=== PATIENT | female | born 1990 | race Caucasian/White ===

== ENCOUNTER 2020-02-09 16:17 | Emergency (ER) | payer BC ==
--- OUTSIDE RECORDS SUMMARY | 2020-02-09 16:39 | XMS REPORT | Continuity of Care Document ---
:1990 Author Organization [facility] t Address [address] [place] [address] Care Team Providers Name Role Phone Umang GARNETT Primary Care Physician Problems Condition Condition Condition Status Onset Resolution Last Treating Co mments Source Name Details Category Date Date Treatment Clinician Date Breast Breast Disease Active [place] mass mass 03-08 [facility] 00:00: st 00 Breast Breast Disease Active [place] density density 03-08 [facility] 00:00: st 00 Breast Breast Disease Active [place] pain pain 03-08 [facility] 00:00: st 00 Endometrio Endometrio Problem Active [facility] sis sis da (clinical) (Clinical) Me dical Group Elevated Elevated Problem Active [place] blood Blood da pressure Pressure Medica l Group Mood Mood Problem Active [place] [facility] Allergies, Adverse Reactions, Alerts Allergy Allergy Status Severity Reaction(s) Onset Inactive Treating Comm ents Source Name Type Date Date Clinician Codeine Propensi Active vomiting [place] to 09-28 [facility] adverse 00:00: st reaction 00 s to drug Codeine Allergy Active Nausea [place] to da substanc [facility] e Group Family History Family Member Diagnosis Comments Start Date Stop Date Source Paternal grandfather Colon cancer Bernard [facility]dock [facility] Natural son Cervical cancer Richard [facility] Natural son Ovarian cancer [facility] ethodi Social History Social Habit Start Date Stop Date Quantity Comments Source Sex Assigned At [facility] ethodist Tobacco use and 2017-03-08 2017-03-08 Never used [facility] ethodist exposure 00:00:00 00:00:00 Alcohol intake 2017-03-08 2017-03-08 Current drinker [place] [facility] 00:00:00 00:00:00 of alcohol (finding) Smoking Status Start Date Stop Date Source Never smoker Richard Ghosh t Medications Ordered Filled Start Stop Current Ordering Indication Dosage Frequency Signature Comments Components Source Medication Medication Date Date Medication? Clinician (SIG) Name Name amphetamine Yes TK ONE C Bernard murdock -dextroamph 09-22 PO QAM Method i etamine XR 00:00: st (ADDERALL 00 XR) 15 MG 24 hr capsule Lyrica 50 Lyrica 50 No 1capsul BID Lyrica 50 [place] mg capsule mg capsule e(s) mg capsule da Take 1 Take 1 Take 1 Medical capsule capsule capsule Group twice a day twice a day twice a by oral by oral day by route. route. oral route. Medrol Medrol No 1dose Medrol [place] (Howard) 4 mg (Howard) 4 mg pk(s) (Howard) 4 mg da tablets in tablets in tablets in Medical a dose pack a dose pack a dose Group Take 1 dose Take 1 dose pack Take pk by oral pk by oral 1 dose pk route as route as by oral directed. directed. route as directed. Immunizations Ordered Immunization Filled Immunization Date Status Commen ts Source Name Name influenza, influenza, 2019-12-03 Completed [place] injectable, injectable, 12:34:21 [facility] Gr[facility] p quadrivalent, quadrivalent, preservative free preservative free Vital Signs Vital Name Observation Time Observation Value Comments Source BP Diastolic 2019-12-29 00:00:00 95 mm[Hg] [facility] Height 2019-12-29 00:00:00 64 [in_i] [facility] BMI (Body Mass 2019-12-29 00:00:00 24.7 kg/m2 [facility] Index) Group BP Systolic 2019-12-29 00:00:00 140 mm[Hg] [facility] Body Weight 2019-12-29 00:00:00 2304 [oz_av] [facility] BP Diastolic 2019-08-27 00:00:00 92 mm[Hg] [facility] Height 2019-08-27 00:00:00 64 [in_i] [facility] BMI (Body Mass 2019-08-27 00:00:00 24.6 kg/m2 [facility]) Group BP Systolic 2019-08-27 00:00:00 140 mm[Hg] [facility] Body Weight 2019-08-27 00:00:00 2297 [oz_av] [facility] BP Diastolic 2018-04-24 00:00:00 88 mm[Hg] [facility] Height 2018-04-24 00:00:00 64 [in_i] [facility] BMI (Body Mass 2018-04-24 00:00:00 24.6 kg/m2 [facility]) Group BP Systolic 2018-04-24 00:00:00 131 mm[Hg] [facility] Body Weight 2018-04-24 00:00:00 143.6 [lb_av] [facility] Procedures Procedure Date / Time Performed Performing Clinician Basil Underwood Cholecystectomy 2010-02-26 00:00:00 [facility] Laparotomy 2009-02-26 00:00:00 Pam Parr [facility] Plan of Care Planned Activity Planned Date Details Comments Source Future Scheduled Test 2019-09-27 INFLUENZA VACCINE [place] [facility] 00:00:00 [code = INFLUENZA VACCINE] Future Scheduled Test 2009 Screening for [place] [facility] 00:00:00 malignant neoplasm of cervix (procedure) [code = 816092570] Instructions [place] [facility] Encounters Start End Encounter Admission Attending Care Care Encounter Source Date/Time Date/Time Type Type Clinicians Facility Department ID 2019-12-29 2019-12-29 Amisha [place] - [id number] [facility] 00:00:00 00:00:00 Discovery ruby Modi 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 2019-08-27 2019-08-27 T[place] [facility] [place] - [id number] [facility] 00:00:00 00:00:00 Denton Paulson, Medical Medical MD: [address] [facility] [address], [place] [address] , Ph. 2018-04-24 2018-04-24 Leyla [facility] [place] - [id number] Dorothy marrufogojuhi 00:00:00 00:00:00 Kamar Matos, Medical Medica l MD: [address] [facility], OBGYN [address], [place] [address] , Ph. [phone] Results This patient has no known results.
--- OUTSIDE RECORDS SUMMARY | 2020-02-09 16:39 | XMS REPORT | Clinical Summary ---
:1990 Author Organization [facility] Address [address] [place] [address] Care Team Providers Name Role Phone ShyamMARIOLA cevallos Primary Care Provider Allergies Active Allergy Reactions Severity Noted Date Comments Codeine 09/28/2016 vomiting Medications Medication Sig Dispensed Refills Start Date End Date Status amphetamine-dextroamphet TK ONE C PO QAM 0 7 Active amine XR (ADDERALL XR) 15 MG 24 hr capsule Active Problems Problem Noted Date Breast mass 03/08/2017 Breast density 03/08/2017 Breast pain 03/08/2017 Surgical History Surgery Date Site/Laterality Comments GALLBLADDER SURGERY 02/26/2010 - 02/25/2011 BREAST SURGERY 02/26/2011 - 02/26/2012 Breast red uction SECTION x2 2013,2015 ENDOMETRIAL ABLATION 02/26/2009 - 02/25/2010 Medical History Medical History Date Comments Endometriosis Scoliosis Family History Medical History Relation Name Comments Colon cancer Paternal Grandfather Cervical cancer Son Ovarian cancer Son Relation Name Status Comments Paternal Grandfather Son Social History Tobacco Use Types Packs/Day Years Used Date Never Smoker Smokeless Tobacco: Never Used Alcohol Use Drinks/Week oz/Week Comments Yes Sex Assigned at Date Recorded Not on file Last Filed Vital Signs Not on file Plan of Treatment Health Maintenance Due Date Last Done Comments CERVICAL CANCER SCREENING 2009 INFLUENZA VACCINE 09/27/2019 Results Not on fileafter 02/08/2019 (Work) Advance Directives For more information, please contact: [phone] Type Date Recorded 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
--- OUTSIDE RECORDS SUMMARY | 2020-02-09 16:39 | XMS REPORT | Encounter Summary ---
:1990 Author Reason for Visit congestion; shoulder/arm pain Instructions 1. Acute upper respiratory infec tion Medrol (Howard) 4 mg tablets in a dose pack 2. Strain of muscle of right [facility] ulder Discussion Note RTC for any other concerns Patient educational handouts: No information available. Plan of Care Patient Instructions medrol dose howard as directed; rec ns aids; continue with zyrtec; push fluids Reminders Provider Appointments None recorded. Lab None recorded. Referral None recorded. Procedures None recorded. Surgeries None recorded. Imaging None recorded. Medications Name Start Date Lyrica 50 mg capsule Take 1 capsule twice a day by oral route. Medrol ([facility]ard) 4 mg tablets in a dose pack Take 1 dose pk by oral route as directed. Medications Administered None recorded. Vitals Height Weight BMI Blood Pressure 64 in 143 lbs 16 oz 24.7 kg/m2 (1) 140/95 mm[H g] (2) 137/96 mm[Hg ] Results Lab Results None recorded. Allergies Code Code System Name Reaction Severity Status Onset 2669 RxNorm Codeine Nausea Active Problems Name Status Onset Date Source Endometriosis (Clinical) Active Encount er Elevated Blood Pressure Active Encounte r Mood Swings Active Encounter Procedures Date Name Performed by 02/26/2010 Lap Cholecystectomy Information not avai lable 02/26/2009 Laparotomy Information not avai lable Vaccine List Vaccine Type influenza, injectable, quadrivalent, pre servative free 12/03/20190.5 mL Social History Tobacco Smoking Status Never Smoker Past Encounters Encounter Date Diagnosis Provider 12/29/2019 Acute Upper Respiratory 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 History of Present Illness Note: pt to clinic for congestion, nasal stuffiness, and voice change x several days; she was cleaningout her barn and stirred up dust; she has taken dayquil and zyrtec with benefit; she denies fever, loss of taste/smell; she also reports right shoulder pain; she was moving feed bucket and dropped it; she reports felt pull; she has a burning sensation; she took tylenol; she states feels worse todayReview of Systems: ROS as noted in the HPI Review of Systems None recorded. Physical Exam Margaret Brief Adult Exam - M/F Reported By: Patient Constitutional: General Appearance: healthy- appearing, well-nourished, well-developed. Level of Dis tress: NAD. Ambulation: ambulating normally Psychiatric: Mental Status: active and al ert ENMT: Ears: EACs clear, TMs clear. Nose: nasal passages clear. Oropharynx: moist mucous membranes, no e rythema, no exudates Neck: Lymph Nodes: no cervical LAD Lungs: Auscultation: breath sounds normal Cardiovascular: Heart Auscultation: RRR, nor mal S1, normal S2, no murmurs Musculoskeletal: Edema absent; tenderness and pain with ROM exercises; full ROM
--- OUTSIDE RECORDS SUMMARY | 2020-02-09 16:40 | XMS REPORT | Continuity of Care Document ---
:1990 Author Care Team Providers Name Role Phone MARIOLA SOUZA Primary Care Physician Health Concerns Health Concerns may be documented in an alternate section. Allergies, Adverse Reactions, Alerts Allergen Type Severity Reaction Last Verified Status Updated Hydrocodone Allergy Severe June 13, Yes Active 2015 Nifedipine Allergy Unknown June 13, Yes Active 2015 Social History Smoking Status Status Date of Observation Never smoked tobacco (finding) February 07, 2020 10: 45am Observation Status Observation Response Date of Response Hx Physical Abuse No February 07, 2020 10:45am Assigned Sex Female Problems Active Problems Medical Problem Onset Date Status Vaginal bleeding in Active Vaginal bleeding Active Exposure to COVID-19 virus Active Viral gastroenteritis Active Status post delivery March 02, 2013 Active Status post repeat low transverse Active section Medications Medication Status Dose Units Route Directions Qty Days Start End Ins tructions Date Date Esomeprazole Active 1 CAP PO Daily 30 Mag * (Nexium 40 Mg *) 40 Mg CAP Fe Active 1 TAB PO Once Daily 27 March Fumarate-Fe as needed , Polysaccharid for 2013 e-* (Integra Bleeding 8:30am *) CAP Ibuprofen Active 800 MG PO Every February (Motrin *) Hours As , 800 Mg TAB Needed 2013 8:30am Ibuprofen Active 800 MG PO Every May Hours As , Needed 2015 1:18am Ondansetron Active 1 TAB PO Every 4-6 20 Decembe Hcl (Zofran Hours As r , *) 4 Mg TAB Needed as 2019 needed for 12:09pm Nausea And Vomiting Oxycodone W/ Active 1-2 TAB PO Every 4-6 May Acetaminophen Hours , (Percocet 2016 5/325) 1 Tab 1:18am TAB Pantoprazole Active 1 TAB PO Before Decembe Sodium Breakfast r , (Protonix Ec for Pud 2019 *) 40 Mg TAB 12:09pm Hydrocodone-A Discontin 1-2 TABS PO Every 4-6H 27 March A pril cetaminophen ued As Needed/ , 5/325MG * Pain as 2013 2015 ([place] needed for 8:30am 5/325MG *) 1 Pain Tab TAB Immunizations No Immunization Information Available Medical Equipment No Medical Equipment Information available Procedures Procedure Date Performed Status ASSAY THYROID STIM HORMONE January 16, 2020 completed LIPID PANEL January 16, 2020 completed COMPREHEN METABOLIC PANEL January 16, 2020 completed HEPATITIS B SURFACE AG IA January 16, 2020 completed ASSAY OF FREE THYROXINE January 16, 2020 completed COMPLETE CBC W/AUTO DIFF WBC January 16, 2020 completed SYPHILIS TEST NON-TREP QUAL January 16, 2020 completed ROUTINE VENIPUNCTURE January 16, 2020 completed HIV COMBINATION ASSAY January 16, 2020 completed Relevant Diagnostic Tests and/or Laboratory Data Laboratory Results Test Date/Time Result Interpretation Reference Result Comment Performing Range Site White Blood Haile 5.7 4.0-11.5 [facility], [address] Count 2019 [place] [id number] 11:02am Red Blood January 4.15 3.80-5.20 [facility], [address] Count 2019 [place] [id number] 11:02am Hemoglobin January 12.6 10.5-15.7 [facility], [facility] 2019 [place] [id number] 11:02am Hematocrit January 38.1 34.0-50.0 [facility], [address] 2019 [facility] [address] 11:02am Mean January 91.8 86-100 [facility], 104 [facility] Corpuscular 2019 [place] [address] Volume 11:02am Mean January 30.4 26.2-33.4 [facility], [address] [facility] Corpuscular 2019 [place] [address] Hemoglobin 11:02am Mean January 33.1 30-34 [facility], [address] [facility] Corpuscular 2019 [place] [address] Hemoglobin 11:02am Concent Red Cell January 12.5 12.0-15.5 [facility], [address] Distributio [address] [place] [address] n Width 11:02am Platelet Haile 289 165-450 [facility], [address] Count 2019 [place] [address] 11:02am Mean Haile 9.6 9.4-12.6 [facility], [address] Platelet 2019 [place] [id number] Volume 11:02am Neutrophils Haile 65.9 44.4-80.1 [facility], [address] (%) (Auto) 2019 [place] [address] 11:02am Immature Haile 0.4 0.0-0.4 [facility], [address] Granulocyte [address] [place] [address] % (Auto) 11:02am Lymphocytes Haile 24.6 10.0-50.0 [facility], [address] (%) (Auto) 2019 [place] [address] 11:02am Monocytes Haile 5.6 3.6-12.0 [facility], [address] (%) (Auto) 2019 [place] [address] 11:02am Eosinophils Haile 2.3 0.0-5.4 [facility], [address] (%) (Auto) 2019 [place] [address] 11:02am Basophils Haile 1.2 0.1-1.2 [facility], [address] (%) (Auto) 2019 [place] [address] 11:02am Neutrophils Haile 3.75 1.56-6.13 [facility], [address] # (Auto) 2019 [place] [address] 11:02am Absolute Haile 0.0 0.0-0.03 [facility], [address] Immature 2019 [place] [id number] Granulocyte 11:02am (auto Lymphocytes Haile 1.4 1.18-3.74 [facility], [address] # (Auto) 2019 [place] [address] 11:02am Monocytes # Haile 0.32 0.24-0.86 [facility], [address] (Auto) 2019 [place] [id number] 11:02am Eosinophils Ahile 0.13 0.04-0.36 [facility], [address] # (Auto) 2019 [place] [id number] 11:02am Basophils # Haile 0.07 0.01-0.08 [facility], [address] (Auto) 2019 [facility] [address] 11:02am Nucleated Haile 0 0-0.2 [facility], [address] [facility] Red Blood 2019 [facility] [address] Cells % 11:02am Nucleated Haile 0 0 [facility], [address] [facility] Red Blood 2019 [facility] [address] Cells # 11:02am Urine Color Haile LIGHT YELLOW [facility], [address] [facility] [address] 2019 [facility] [address] 10:58am Urine [place] CLEAR CLEAR [facility], [address] [facility] [address] Appearance 2019 [facility] [address] 10:58am Urine [place] NEGATIVE NEGATIVE [facility], [address] [facility] [address] Glucose 2019 [facility] [address] (UA) 10:58am Urine [place] NEGATIVE NEGATIVE [facility], [address] [facility] [address] Bilirubin 2019 [place] [id number] 10:58am Urine Haile NEGATIVE NEGATIVE [facility], [address] [facility] Ketones 2019 [place] [id number] 10:58am Urine Haile 1.010 1.003-1.030 [facility], 10 [address] [facility] [address] Specific 2019 [place] [id number] [place] 10:58am Urine Blood Haile TRACE NEGATIVE [facility], 10 4 [facility] [address] 2019 [place] [id number] 10:58am Urine pH Haile 6.000 5-9 [facility], [address] [facility] [address] 2019 [place] [id number] 10:58am Urine [place] NEGATIVE NEGATIVE [facility], [address] [facility] Protein 2019 [place] [id number] 10:58am Urine [place]ile NORMAL 0.2-1.0 [facility], [address] [facility] Urobilinoge 2019 [facility] [address] n 10:58am Urine [place]ile NEGATIVE NEGATIVE [facility], [address] [facility] [address] Nitrate 2019 [facility] [address] 10:58am Urine [place] NEGATIVE NEGATIVE [facility], [address] [facility] [address] Leukocyte 2019 [facility] [address] Esterase 10:58am Urine RBC Haile 1-5 0-5 [facility], [address] [facility] [address] 2019 [place] [id number] 10:58am Urine WBC Haile 1-5 0-5 [facility], [address] [facility] [address] 2019 [facility] [address] 10:58am Urine Haile 1-5 0-5 [facility], [address] [facility] [address] Epithelial 2019 [facility] [address] Cells 10:58am Urine [place] SMALL(1+) None Detect [facility], 10 [address] [facility] [address] Bacteria 2019 [place] [id number] 10:58am Urine Casts January 2-5 None Detect [facility], [address] [place] [address] ST 2019 [place] [id number] 10:58am Urine Haile YES [facility], [address] [place] [address] Culture 2019 [place] [id number] Reflexed 10:58am Urine Yeast January None seen None Detect [facility], [address] [facility] [address] 2019 [place] [id number] 10:58am Random January 74-106 [facility], [address] [facility] [address] Glucose 2019 [place] [address] 11:02am Blood Urea February 06 6-20 [facility], [address] [facility] Nitrogen 2019 [place] [id number] 11:02am Serum January 277 280-300 [facility], [address] [facility] [address] Osmolality 2019 [place] [address] 11:02am Creatinine January 0.5 0.50-0.90 [facility], [address] [place] [address] 2019 [place] [address] 11:02am Glomerular Haile > 60.00 GFR RESULTS [facility], 1 Filtration 2019 [place] [address] Rate Calc 11:02am IN mL/min/1.73m2. Normal GFR: >60mL/minModer ately decreased GFR: 30-59 mL/minSeverely decreased GFR: 15-29 mL/minKidney Failure (or Dialysis): <15 mL/minThe calculated eGFR is not valid for patients younger than 18 years or older than 75 years. BUN/Creatin January 24.0 12-20 [facility], [address] ine Ratio 2019 [place] [address] 11:02am Sodium January 139 135-145 [facility], [address] [facility] [address] Level 2019 [place] [address] 11:02am Potassium January 3.9 3.5-5.2 [facility], [address] [facility] [address] Level 2019 [place] [address] 11:02am Chloride January 104 98-108 [facility], [address] [facility] [address] Level 2019 [place] [id number] 11:02am Carbon January 23 21-32 [facility], [address] [facility] Dioxide 2019 [place] [address] Level 11:02am Anion Gap January 15.9 12-20 [facility], [address] [facility] [address] 2019 [place] [id number] 11:02am Calcium January 9.6 8.6-10.0 [facility], [address] [place] [address] ST Level 2019 [place] [id number] 11:02am Total Haile 7.5 6.6-8.7 [facility], [address] [facility] Protein 2019 [place] [id number] 11:02am Albumin Haile 4.8 3.5-5.2 [facility], [address] [facility] 2019 [place] [id number] 11:02am Globulin Haile 2.7 [facility], [address] [facility] 2019 [place] [address] 11:02am Albumin/Carline Haile 1.8 >1.0 [facility], 10 [address] [facility] bulin Ratio 2019 [place] [id number] 11:02am Total Haile 0.7 0.0-1.2 [facility], [address] [facility] [address] Bilirubin 2019 [place] [address] 11:02am Aspartate January 13 15-32 [facility], [address] [facility] Amino 2019 [place] [address] Transf 11:02am (AST/SGOT) Alanine January 9 0-33 [facility], [address] [facility] Aminotransf 2019 [place] [id number] erase 11:02am (ALT/SGPT) Lipase February 20 13-60 [facility], [address] [facility] 2019 [place] [address] 11:02am Total January 62 35-105 [facility], [address] [facility] Alkaline 2019 [place] [id number] Phosphatase 11:02am Cholesterol December 174 150-200 [facility], 10 4 [facility] Level 2019 [place] [id number] 9:55am Triglycerid December 53 <150 [facility], 10 4 [facility] es Level 2019 [place] [id number] 9:55am HDL December 66 >65 HDL EXPECTED [facility], 04 [facility] Cholesterol 2019 VALUES:[facility] [address] 9:55am : >65 mg/dL NO RISK 45-65 mg/dL MODERATE RISK <45 mg/dL HIGH RISKMALES: >55 mg/dL NO RISK 35-55 mg/dL MODERATE RISK <35 mg/dL HIGH RISK LDL December 102 <100 LDL Expected [facility], [address] [place] [address] 2019 Values:Optimal [place] [id number] 9:55am <100 mg/dLNear optimal/above optimal 100-129 mg/dLBorderlin e high 130-159 mg/dLHigh 160-189 mg/dLVery high >190 mg/dL Coronary December 2.636 [facility], [address] [place] [address] Heart 2019 [facility] [address] Disease 9:55am CHOLESTEROL Risk Ratio [employer]UID[employer]ES [facility] ([facility]) guidelines for classificaton, testing and management of cholesterol levels in adults over 20 years of age. This new classification creates three categories of risk for coronary heart disease, regardless of age or sex, according to total and LDL cholesterols levels: Based on total cholesterol levelDesirable <200 mg/dlBorderlin e-high 200-239 mg/dlHigh >=240 mg/dl Based on cholesterol ratioCHD RISK CHOL/HDL RATIO--------- --------- MALE FEMALE0.5 x Average 3.4 3.31.0 x Average 5.0 4.42.0 x Average 9.6 7.13.0 x Average 13.5 11.0 Thyroid November 3.01 0.36-3.74 [facility], [address] [place] [address] 2019 [facility] [address] Hormone 9:55am (TSH) Free December 1.10 0.93-1.[address] Thyroxine 2019 [facility] [address] 9:55am Rapid November NONREACTIVE NONREACTIVE [address] Plasma 2019 [facility] [address] Reagin 9:55am Hepatitis B November Negative Negative Performed at: [facility] OR A# [id number], [address] 2019 HD - [facility] [address] Antigen 9:55am [address] [id number] Director: Mor Isbell MD, Phone: [phone] Microbiology Results Procedure Source Result Collection Result Result Performin g Date/Time Date/Time Comment Site Urine Culture URINE,[place]HO[place]O SPECIMEN HAS February 06January [facility], [address] [facility] N CATCH BEEN 2019 10:58am 2019 [facility] [address] RECEIVED IN 12:00pm LAB AND IS IN PROGRESS. Vital Signs No vital signs result information available. Advance Directives Advance Directive Response Recorded Date/Time Advance Directives No June 14, 2015 10: 15am Directive to Physicians/Living No May 10:15am Will Health Care Proxy No June 14, 2015 10: 15am Organ Donor No June 14, 2015 10: 15am Medical Power of Soil Science Teacher No June 13 10:15am Insurance Providers Guarantor Valarie Abdi Address [id number] [facility] [address] Contact Info. Home Phone: Payer Policy Id Coverage Id Subscriber's Subscriber Id Effective E xpiration Name Date Date [employer] [id number] Valarie Abdi [id number] [address] Encounters Encounter Location(s) Arrival/Admit Date Discharge/Depart Date Provider(s) Registered Pam February 06, LIDIA GILES Emergency Room [facility] 2019 10:38am Ctr Reg[facility] [place] [facility] 9:44am [facility] [employer]CE SUPER[employer] -C Ctr Functional Status No Functional Status information available Mental Status No Mental Status Information Available Assessments No Assessments Information Available Plan of Treatment Future Tests Future scheduled test information is unavailable Pending Tests Test Name Date ordered Coronavirus COVID-19 PCR (KENYA) February 07, 2020 12: 06pm Surgical Pathology June 14, 2015 10:00am Future Visits Future appointment information is unavailable Referrals to Other Providers Reason for Referral Start Provider Provider Contact Provider Address Referral Date Information JEN KIRKLAND Work Phone: [phone] [facility] [address] Future Procedures Future procedure information is unavailable Future Medications Future medication information is unavailable Patient Instructions Delivery, Care After Care After Delivery Goals Goals may be documented in an alternate section.
[2020-02-09] MEDS ORDERED: NA CHLORIDE 0.9% 1,000 ML ONE ×2 (18:08→19:36)
[2020-02-09 18:20] LABS: Urine Blood 1+ (NEG); Urine Glucose NEGATIVE (NEG); Urine Protein NEGATIVE (NEG); Urine Specific Gravity 1.015 (1.005-1.030)
[2020-02-09 18:26] LABS: Absolute Lymphocytes (CBC) 0.8 K/uL (0.7-4.9); Basophils % 0.4 % (0-1.3); Hematocrit 39.1 % (36.0-45.0); MPV 8.7 fL (7.6-11.3); RBC Red Blood Cell Count 4.42 M/uL (3.86-4.86)
[2020-02-09 18:34] LABS: ALT/SGPT 27 U/L (12-78); AST/SGOT 17 U/L (15-37); Albumin 4.4 g/dL (3.4-5.0); Alkaline Phosphatase 66 U/L (45-117); BUN Blood Urea Nitrogen 9 mg/dL (7-18); Bicarbonate 27 mmol/L (21-32); Bilirubin Direct 0.2 mg/dL (0-0.2); Bilirubin Total 0.6 mg/dL (0.2-1.0); Glucose Level 108 mg/dL (74-106); Lipase 133 U/L (73-393); Protein, Total 8.1 g/dL (6.4-8.2); Sodium Level 141 mmol/L (136-145)
--- NOTE | 2020-02-09 19:19 | RAD REPORT ---
EXAM DESCRIPTION: CTAbdomen Pelvis W Contrast - 02/09/2020 7:08 pm CLINICAL HISTORY: Abdominal pain. abdominal pain, vomiting COMPARISON: No comparisons TECHNIQUE: Biphasic CT imaging of the abdomen and pelvis was performed with 100 ml non-ionic IV cont rast. All CT scans are performed using dose optimization technique as appropriate and may include automated exposure control or mA/KV adjustment according to patient size. FINDINGS: The lung bases are clear.Cholecystectomy clips. The liver, pancreas, adrenal glands and kidneys are within normal limits. 26 mm low-density lesion in the medial spleen likely benign. No bowel obstruction, free air, free fluid or abscess. The appendix is normal. No evidence of signi ficant lymphadenopathy. No suspicious bony findings. IMPRESSION: No acute intra-abdominal or pelvic finding.
[2020-02-09 19:35] LABS: Blood Morphology Comment NOTED (NOT SEEN); Platelet Estimate ADEQ; White Blood Cell Scan OK (OK)
[2020-02-09] MEDS ORDERED: METOCLOPRAMIDE 10 MG/2mL INJ ONE (19:35)
[2020-02-09 19:36] LABS: Anisocytosis 1+; Poikilocytosis 1+
--- NOTE | 2020-02-09 19:53 | EDPHYS ---
Physician Documentation [facility] Name: Valarie Cutler Age: 29 yrs Sex: Female : 1990 Arrival Date: 02/09/2020 Time: 16:19 Bed 7 Private MD: ED Physician Louis Meraz HPI: 02/08 17:50 This 29 yrs old Female presents to ER via Ambulatory with complaints of jmm Abdominal Pain, Vomiting, Fever. 17:50 The patient presents with abdominal pain in the epigastric area. Onset: The jmm symptoms/episode began/occurred gradually, 6 day(s) ago. The symptoms do not radiate. Associated signs and symptoms: Pertinent positives: nausea and vomiting, diarrhea. The symptoms are described as achy. Modifying factors: The symptoms are alleviated by nothing, the symptoms are aggravated by nothing. The patient has experienced a previous episode. . 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 - Social history:: Smoking status: Patient denies any tobacco usage or history of. ROS: 17:50 Cardiovascular: Negative for chest pain, palpitations, and edema, Respiratory: Negative jmm for shortness of breath, cough, wheezing, and pleuritic chest pain. 17:50 Constitutional: Positive for fever. 17:50 Abdomen/GI: Positive for nausea and vomiting, diarrhea. 17:50 All other systems are negative. Exam: 17:50 Constitutional: This is a well developed, well nourished patient who is awake, alert, jmm and in no acute distress. Head/Face: atraumatic. Eyes: EOMI, no conjunctival erythema appreciated ENT: Moist Mucus Membranes Neck: Trachea midline, Supple Chest/axilla: Normal chest wall appearance and motion. Cardiovascular: Regular rate and rhythm. No edema appreciated Respiratory: Normal respirations, no respiratory distress appreciated 17:50 Back: Normal ROM Skin: General appearance color normal MS/ Extremity: Moves all extremities, no obvious deformities appreciated, no edema noted to the lower extremities Neuro: Awake and alert, normal gait Psych: Behavior is normal, Mood is normal, Patient is cooperative and pleasant 17:50 Abdomen/GI: Inspection: abdomen appears normal, Bowel sounds: normal, Palpation: soft, mild abdominal tenderness, in the epigastric area. Vital Signs: 16:38 BP 129 / 80; Pulse 90; Resp 18; Temp 98.4(O); Pulse Ox 99% on R/A; Weight 65.77 kg; em Height 5 ft. 4 in. (162.56 cm); Pain 2/10; 18:00 BP 128 / 79; Pulse 75; Resp 16; Pulse Ox 100% ; sv 18:14 BP 128 / 79; Pulse 71; Resp 15; Pulse Ox 100% ; jl7 19:30 BP 127 / 83; Pulse 69; Resp 18; Pulse Ox 100% on R/A; wh 16:38 Body Mass Index 24.89 (65.77 kg, 162.56 cm) em MDM: 18:42 Patient medically screened. [facility] 19:49 Data reviewed: vital signs, nurses notes. Counseling: I had a detailed discussion with lisa the patient and/or guardian regarding: the historical points, exam findings, and any diagnostic results supporting the discharge/admit diagnosis, lab results, radiology results, the need for outpatient follow up, to return to the emergency department if symptoms worsen or persist or if there are any questions or concerns that arise at home. ED course: Patient is alert and non toxic in appearance in the ED. Advised to follow up with pcp and otherwise given strict return precautions. Patient understood and agrees with the plan of care. . 02/08 17:50 Order name: Basic Metabolic Panel; Complete Time: 18:43 [facility] 02/08 17:50 Order name: CBC with Diff; Complete Time: 19:38 [facility] 02/08 17:50 Order name: Hepatic Function; Complete Time: 18:43 [facility] 02/08 17:50 Order name: Lipase; Complete Time: 18:43 [facility] 02/08 17:51 Order name: Flu; Complete Time: 18:44 [facility] 02/08 18:13 Order name: Urine Dipstick--Ancillary (enter results); Complete Time: 18:43 02/08 17:50 Order name: IV Saline Lock; Complete Time: 18:14 [facility] 02/08 17:50 Order name: Labs collected and sent; Complete Time: 18:14 [facility] 02/08 18:13 Order name: Urine --Ancillary (enter results); Complete Time: 18:43 bd 02/08 18:55 Order name: CT Abd/Pelvis - IV Contrast Only; Complete Time: 19:31 [facility] 02/08 19:36 Order name: CBC Smear Scan; Complete Time: 19:38 [facility] 02/08 17:50 Order name: Urine Dipstick-Ancillary (obtain specimen); Complete Time: 18:14 [facility] 02/08 17:50 Order name: Urine Test (obtain specimen); Complete Time: 18:14 [facility] Administered Medications: 18:14 Drug: NS 0.9% 1000 ml Route: IV; Rate: 1 bolus; Site: right antecubital; [facility] 20:01 Follow up: Response: No adverse reaction; IV Status: Completed infusion 19:25 Drug: Reglan 10 mg Route: IVP; Site: right antecubital; 19:58 Follow up: Response: No adverse reaction; Nausea is decreased 19:25 Drug: NS 0.9% 1000 ml Route: IV; Rate: 1 bolus; Site: right antecubital; 19:58 Follow up: Response: No adverse reaction; IV Status: Completed infusion Disposition: 02/09/20 19:52 Discharged to Home. Impression: Vomiting. - Condition is Stable. - Discharge Instructions: Nausea and Vomiting, Adult. - Medication Reconciliation Form, Thank You Letter, Antibiotic Education, Prescription Opioid Use, Work release form form. - Follow up: Private Physician; When: 2 - 3 days; Reason: Recheck today's complaints, Continuance of care, Re-evaluation by your physician. Addendum: 02/28/2020 13:29 Co-signature as Attending Physician, Louis Meraz MD Available for consultation at p s1 all times. Did not see patient unless otherwise noted. Signature is for administrative purposes and not an endorsement of care. . Signatures: Dispatcher [employer] Travis Hernandez PA PA Jacobo Rodriguez, RN RN Amanda Gaitan RN RN [email or web address] Claudio Barnett Louis Meraz MD MD ps1 Corrections: (The following items were deleted from the chart) 02/08 20:02 19:52 02/09/2020 19:52 Discharged to Home. Impression: Vomiting. Condition is Stable. wh Forms are Medication Reconciliation Form, Thank You Letter, Antibiotic Education, Prescription Opioid Use. Follow up: Private Physician; When: 2 - 3 days; Reason: Recheck today's complaints, Continuance of care, Re-evaluation by your physician. lisa
--- NOTE | 2020-02-09 19:53 | ER ---
Nurse's Notes [facility] Name: Valarie Cutler Age: 29 yrs Sex: Female : 1990 Arrival Date: 02/09/2020 Time: 16:19 Bed 7 Private MD: Diagnosis: Vomiting Presentation: 02/08 16:38 Chief complaint: Patient states: was seen at [facility] on 02/03/20 for epigastric pain, em N/V/D, fever 100.4, covid results were neg. Coronavirus screen: Client denies travel out of the [place] in the last 14 days. Ebola Screen: Patient negative for fever greater than or equal to 101.5 degrees Fahrenheit, and additional compatible Ebola Virus Disease symptoms Patient denies exposure to infectious person. Patient denies travel to an Ebola-affected area in the 21 days before illness onset. No symptoms or risks identified at this time. Initial Sepsis Screen: Does the patient meet any 2 criteria? No. Patient's initial sepsis screen is negative. Does the patient have a suspected source of infection? No. Patient's initial sepsis screen is negative. Risk Assessment: Do you want to hurt yourself or someone else? Patient reports no desire to harm self or others. Onset of symptoms was February 03, 2020. 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 - Social history:: Smoking status: Patient denies any tobacco usage or history of. Screenin:14 Abuse screen: Denies threats or abuse. Denies injuries from another. Nutritional jl7 screening: No deficits noted. Tuberculosis screening: No symptoms or risk factors identified. Fall Risk IV access (20 points). Total Walsh Fall Scale indicates No Risk (0-24 pts). Assessment: 18:14 General: Appears in no apparent distress. uncomfortable, ill, Behavior is calm, jl7 cooperative, appropriate for age. Pain: Complains of pain in epigastric area Pain currently is 2 out of 10 on a pain scale. Neuro: Level of Consciousness is awake, alert, obeys commands, Oriented to person, place, time, situation. Cardiovascular: Patient's skin is warm and dry. Respiratory: Airway is patent Respiratory effort is even, unlabored, Respiratory pattern is regular, symmetrical. GI: Abdomen is non-distended, Reports diarrhea, nausea, vomiting. : No signs and/or symptoms were reported regarding the genitourinary system. Derm: Skin is pink, warm \T\ dry. Musculoskeletal: No signs and/or symptoms reported regarding the musculoskeletal system. 19:10 Reassessment: Patient appears in no apparent distress at this time. Patient and/or wh family updated on plan of care and expected duration. Pain level reassessed. Patient is alert, oriented x 3, equal unlabored respirations, skin warm/dry/pink. 19:10 GI: Bowel sounds present X 4 quads. Abd is soft and non tender X 4 quads. wh 19:59 Reassessment: Patient appears in no apparent distress at this time. Patient and/or wh family updated on plan of care and expected duration. Pain level reassessed. Patient is alert, oriented x 3, equal unlabored respirations, skin warm/dry/pink. Patient states feeling better. Patient states symptoms have improved. Vital Signs: 16:38 BP 129 / 80; Pulse 90; Resp 18; Temp 98.4(O); Pulse Ox 99% on R/A; Weight 65.77 kg; em Height 5 ft. 4 in. (162.56 cm); Pain 2/10; 18:00 BP 128 / 79; Pulse 75; Resp 16; Pulse Ox 100% ; sv 18:14 BP 128 / 79; Pulse 71; Resp 15; Pulse Ox 100% ; jl7 19:30 BP 127 / 83; Pulse 69; Resp 18; Pulse Ox 100% on R/A; wh 16:38 Body Mass Index 24.89 (65.77 kg, 162.56 cm) em ED Course: 16:19 Patient arrived in ED. as 16:42 Triage completed. em 16:44 Arm band placed on. em 17:44 Travis Lawson PA is PHCP. [facility] 17:44 Louis Meraz MD is Attending Physician. [facility] 17:45 Amanda Delvalle RN is Primary Nurse. jl7 18:14 Patient has correct armband on for positive identification. Bed in low position. Call jl7 light in reach. Side rails up X 1. Pulse ox on. NIBP on. 18:14 Initial lab(s) drawn, by me, sent to lab. Flu and/or RSV swab sent to lab. Inserted jl7 saline lock: 20 gauge in right antecubital area, using aseptic technique. Blood collected. 19:08 CT Abd/Pelvis - IV Contrast Only In Process Unspecified. EDMS 19:59 Primary Nurse role handed off by Amanda Delvalle RN mw2 19:59 No provider procedures requiring assistance completed. IV discontinued, intact, bleeding controlled, No redness/swelling at site. 20:01 Claudio Barnett is Primary Nurse. Administered Medications: 18:14 Drug: NS 0.9% 1000 ml Route: IV; Rate: 1 bolus; Site: right antecubital; [facility] 20:01 Follow up: Response: No adverse reaction; IV Status: Completed infusion 19:25 Drug: Reglan 10 mg Route: IVP; Site: right antecubital; 19:58 Follow up: Response: No adverse reaction; Nausea is decreased 19:25 Drug: NS 0.9% 1000 ml Route: IV; Rate: 1 bolus; Site: right antecubital; 19:58 Follow up: Response: No adverse reaction; IV Status: Completed infusion Outcome: 19:52 Discharge ordered by MD. [facility] 20:00 Discharged to home ambulatory, with family. 20:00 Condition: stable 20:00 Discharge instructions given to patient, family, Instructed on discharge instructions, follow up and referral plans. POC Demonstrated understanding of instructions, follow-up care, POC 20:02 Patient left the ED. Signatures: Dispatcher [employer] EDMS Venice Justice RN RN sv Mickail, Joel, PA PA jmm Munoz, Edgar, RN RN em Martinez, Amelia as Amanda Delvalle RN RN jl7 Habalo, Winsy Willa Dave mw2 Corrections: (The following items were deleted from the chart) 19:24 18:14 Initial lab(s) drawn, by me, sent to lab. COVID swab sent to lab. leah Corey 20:01 20:00 Discharge instructions given to patient, family, Instructed on discharge wh instructions, follow up and referral plans. POC Demonstrated understanding of instructions, follow-up care, medications, POC Prescriptions given X 2, wh
[2020-02-12 11:46] VITALS: TEMP 98.4
[2020-02-12 11:47] VITALS: O2SAT 100
[2020-02-12 11:50] VITALS: BP 127/83
== END 2020-02-09 20:02 | disposition home or self-care (01) ==
LOC: ER 16:17
DX: R11.10 Vomiting, unspecified (principal); Z88.5 Allergy status to narcotic agent
CPT/HCPCS: 96361; 85025; 80048; 36415; 81025; 80076; 81003; 83690; 87804 ×2; 74177; 96374; 99284; Q9967; J2765; J7030 ×2